=== PATIENT | female | born 1960 | race Caucasian/White ===

== ENCOUNTER → 2025-04-02 | Outpatient (CLI) | payer BC, OTHER ==
--- NOTE | 2025-04-02 08:36 | MM ---
Reason for Exam: Clinical finding. Indicated Problems: Pain of the left side (Global) for 2 Week(s). Patient History: Menarche at age 11. First Full-Term at age 24. Postmenopausal. Patient has history of breast feeding. Patient used Hormonal Contraceptives for 1 year. Maternal aunt had breast cancer at or over age 50. Risk Values: Carmel 5 year model risk: 1.8%. NCI Lifetime model risk: 6.9%. Tissue Density: There are scattered areas of fibroglandular density. Findings: Analyzed By CAD. No suspicious mass or distortion in either breast. Overall Assessment: Incomplete: need additional imaging evaluation, BI-RAD 0 Management: Diagnostic Breast Ultrasound of the left breast. Targeted ultrasound left breast due to focal pain. Results were given to the patient verbally at the time of exam. Patient should continue monthly self-breast exams. A clinical breast exam by your physician is recommended on an annual basis. This exam should not preclude additional follow-up of suspicious palpable abnormalities. Note on Carmel scores and lifetime risk: 1. A Carmel score greater than 3% is considered moderate risk. If this is the case, consider specialist referral to assess eligibility for a risk reducing agent. 2. If overall lifetime risk for the development of breast cancer is 20% or higher, the patient may qualify for future screening with alternating mammogram and breast MRI. [facility], , 04/02/2025 8:32 AM. Electronically signed and approved by: Emiliano Bateman M.D.
--- NOTE | 2025-04-02 08:53 | USB ---
Reason for Exam: Clinical finding. Patient History: Menarche at age 11. First Full-Term at age 24. Postmenopausal. Patient has history of breast feeding. Patient used Hormonal Contraceptives for 1 year. Maternal aunt had breast cancer at or over age 50. Risk Values: Carmel 5 year model risk: 1.8%. NCI Lifetime model risk: 6.9%. Technique: Method: Targeted. Doppler: Color. Patient Position: Supine. Findings: The area of palpable concern of the left breast, the axilla of the left breast and the retroareolar of the left breast were scanned. Targeted ultrasound. Prominent tissue. No concerning solid or cystic mass or fluid collection. Incidental benign-appearing lymph node in the left axilla. Overall Assessment: Negative, BI-RAD 1 Management: Screening Mammogram of both breasts in 1 year. Manage patient's symptoms clinically. A clinical breast exam by your physician is recommended on an annual basis and results should be correlated with mammographic findings. This exam should not preclude additional follow-up of suspicious palpable abnormalities. Results were given to the patient verbally at the time of exam. [facility], , 04/02/2025 8:50 AM. Electronically signed and approved by: Emiliano Bateman M.D.
== END | disposition home or self-care (01) ==
LOC: RADMAMWWP 07:54
PROVIDERS: ATTEND Family Medicine
DX: R92.8 Other abnormal and inconclusive findings on diagnostic imaging of breast (principal); R92.323 Mammographic fibroglandular density, bilateral breasts; N64.4 Mastodynia; Z78.0 Asymptomatic menopausal state; Z92.0 Personal history of contraception; Z80.3 Family history of malignant neoplasm of breast
CPT/HCPCS: 77062; 77066